=== PATIENT | female | born 1990 | race Caucasian/White ===

== ENCOUNTER → 2016-12-27 | Outpatient (CLI) | payer OTHER ==
--- NOTE | 2016-12-28 21:26 | MR ---
Brain MR HISTORY: Partial symptomatic epilepsy Multiplanar multisequence imaging obtained through the brain No comparisons Focus of increased signal on diffusion-weighted images at the level of the inner table of the left fr ontal calvarium, axial image 21. There is no restricted diffusion within the brain. Corpus callosum, pituitary, cervical medullary junction are normal. Brain signal is normal. Gonzales-white differentiation is unremarkable. The orbits show symmetric appearance. There are normal vascular flow voids. The orb its show a symmetric appearance. Inflammatory change present within the ethmoid air cells, right maxi llary sinus. There is no hemorrhage or hydrocephalus. Focus of low signal seen on image 22 of the axi al T2 data set along the anterior table of the left frontal region measures 5 to 6 mm and is indeterm inate. There is no mass effect. IMPRESSION: There is a focus of restricted diffusion There may be a small osteoma, although findings are indeterminate, present left frontal calvarium inner table, CT scan of the brain could be performe d for better evaluation.
== END | disposition home or self-care (01) ==
LOC: RADMRIMAIN 11:50
PROVIDERS: ATTEND Psychiatry & Neurology Neurology
DX: G40.209 Localization-related (focal) (partial) symptomatic epilepsy and epileptic syndromes with complex partial seizures, not intractable, without status epilepticus (principal)
CPT/HCPCS: 70551